=== PATIENT | male | born 2000 | race Caucasian/White ===

== ENCOUNTER 2022-09-03 12:37 | Emergency (ER) | payer BC, SELFPAY ==
--- NOTE | ~2022-09-03 | XR_ITS ---
EXAMINATION: XR forearm LT 2V INDICATION: Left forearm pain TECHNIQUE: Two views of the left forearm are obtained. COMPARISON: None available FINDINGS: No fracture, dislocation, or subluxation. The bones, soft tissues, and joint spaces are nor mal. IMPRESSION: 1. No acute osseous abnormality. Reviewed, dictated and finalized at location B.
--- NOTE | ~2022-09-03 | XR_ITS ---
EXAMINATION: XR knee RT min 4V DATE: 09/03/2022 13:49 INDICATION: Right knee pain TECHNIQUE: Four views of the right knee were obtained. COMPARISON: None. FINDINGS: Alignment is normal. No fracture or osteochondral lesion. Joint spaces are normal with no e rosions. A small knee joint effusion is present. There is anterior soft tissue swelling knee. IMPRESSION: 1. Soft tissue swelling and small knee joint effusion without acute osseous abnormality. Reviewed, dictated and finalized at location B. IMPRESSION: 1. Soft tissue swelling and small knee joint effusion without acute osseous abn ormality.
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
[2022-09-03 12:44] VITALS: BP 144/80; PULSE 69; RESP 16; TEMP 36.9; O2SAT 100
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
[2022-09-03] MEDS: ACETAMINOPHEN 500 MG TABLET 1000 MG PO (15:13)
[2022-09-03 17:35] VITALS: BP 148/76; PULSE 90; RESP 18; O2SAT 97
== END 2022-09-03 17:05 | disposition home or self-care (01) ==
PROVIDERS: Emergency Provider Emergency Medicine
DX: S22.030A Wedge compression fracture of third thoracic vertebra, initial encounter for closed fracture (principal); S22.040A Wedge compression fracture of fourth thoracic vertebra, initial encounter for closed fracture; S20.311A Abrasion of right front wall of thorax, initial encounter; S60.812A Abrasion of left wrist, initial encounter; S80.211A Abrasion, right knee, initial encounter; V86.56XA Driver of dirt bike or motor/cross bike injured in nontraffic accident, initial encounter
CPT/HCPCS: 70450; 71260; 72125; 72128; 72131; 73090; 73564; 74177; 99284; A9270; Q9967

== ENCOUNTER → 2022-09-12 12:43 | Outpatient (CLI) | payer BC, SELFPAY ==
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
== END ==
PROVIDERS: PCP Emergency Medicine; Visit Provider Emergency Medicine
DX: R07.81 Pleurodynia (principal)
CPT/HCPCS: 71046; 73000

== ENCOUNTER 2022-09-18 08:50 | Outpatient (CLI) | payer BC, SELFPAY ==
[2022-09-18 19:16] LABS: Basophils Absolute Auto 0.1 K/mm3 (0.0-0.1); Basophils Percent Auto 1.9 % (0.2-1.2); Eosinophils Absolute Auto 0.2 K/mm3 (0-0.3); Hematocrit 47.7 % (42.0-52.0); Immature Granulocyte Absolute 0.02 K/mm3 (0.00-0.031); Immature Granulocyte Percent A 0.4 % (0-0.5); Lymphocytes Absolute Auto 1.26 K/mm3 (0.9-3.2); Lymphocytes Percent Auto 26.3 % (18.3-44.2); Mean Corpuscular HGB Conc 33.5 g/dl (32-36); Mean Corpuscular Hemoglobin 30.3 pg (26-34); Mean Corpuscular Volume 90.3 fl (80-100); Mean Platelet Volume 10.2 fl (7.4-10.4); Monocytes Absolute Auto 0.5 K/mm3 (0.1-0.6); Monocytes Percent Auto 10.4 % (2.6-8.5); Neutrophils Absolute Auto 2.7 K/mm3 (1.3-6.7); Platelet Count Result 241 k/mm3 (150-375); Red Blood Count 5.28 M/mm3 (4.6-6.20); Red Cell Distribution Width 12.9 % (11.5-14.5); White Blood Count 4.8 K/mm3 (4.5-10.0)
[2022-09-19 00:36] LABS: Alanine Aminotransferase 50 U/L (6-50); Albumin Level 4.9 g/dL (3.5-5.1); Alkaline Phosphatase 113 U/L (38-126); Anion Gap 10 mmol/L (8-16); Aspartate Amino Transferase 55 U/L (17-59); Bilirubin,Total 0.7 mg/dL (0.2-1.3); Blood Urea Nitrogen 19 mg/dL (9-20); Calcium 10.1 mg/dL (8.4-10.2); Carbon Dioxide 29 mmol/L (22-30); Chloride 103 mmol/L (98-107); Cholesterol 157 mg/dL (0-200); Estimated Glomerular Filt Rate > 60; Glucose 79 mg/dL (65-110); HDL Direct 38 mg/dL; Potassium 4.4 mmol/L (3.4-5.0); Sodium 142 mmol/L (137-145); Triglycerides 95 mg/dL (<150)
[2022-09-19 00:47] LABS: LDL Cholesterol Direct 71 mg/dL
[2022-09-25 04:53] LABS: Apolipoprotein B 70 mg/dL (<90)
== END 2022-09-18 08:51 | disposition home or self-care (01) ==
LOC: ANHGOSHLAB 08:52
PROVIDERS: Visit Provider Internal Medicine
DX: Z13.29 Encounter for screening for other suspected endocrine disorder (principal); Z13.0 Encounter for screening for diseases of the blood and blood-forming organs and certain disorders involving the immune mechanism; Z13.228 Encounter for screening for other metabolic disorders; Z82.3 Family history of stroke
CPT/HCPCS: 36415; 80053; 80061; 82172; 83036; 85025

== ENCOUNTER 2022-11-14 12:35 | Outpatient (CLI) | payer BC, SELFPAY ==
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
== END 2022-11-14 12:36 | disposition home or self-care (01) ==
PROVIDERS: PCP Internal Medicine; Visit Provider Neurological Surgery
DX: S22.030D Wedge compression fracture of third thoracic vertebra, subsequent encounter for fracture with routine healing (principal); S22.040D Wedge compression fracture of fourth thoracic vertebra, subsequent encounter for fracture with routine healing; S22.060D Wedge compression fracture of T7-T8 vertebra, subsequent encounter for fracture with routine healing; S22.050D Wedge compression fracture of T5-T6 vertebra, subsequent encounter for fracture with routine healing; X58.XXXD Exposure to other specified factors, subsequent encounter
CPT/HCPCS: 72070

== ENCOUNTER 2023-08-10 12:47 | Emergency (ER) | payer OTHER, SELFPAY ==
--- NOTE | 2023-08-10 13:02 | ED.EAR ---
HPI - Ear Problem General Chief complaint: Ear Stated complaint: rt ear inf Time Seen by Provider: 08/10/23 13:05 Source: patient Mode of arrival: ambulatory Limitations: no limitations History of Present Illness HPI Narrative: 22-year-old male presented for complaint of right ear pain worsening over the past 3 days. Endorses drainage from the ear. He has not been swimming. Endorses wearing ear buds. Denies tinnitus, dizziness, nausea vomiting, fevers or chills. MD Complaint: ear pain Related Data Allergies Allergy/AdvReac Type Severity Reaction Status Date / Time No Known Allergies Allergy Verified 08/10/23 13:06 Review of Systems Review of Systems: CONSTITUTIONAL: Denies malaise, chills, or fever. EYES: Denies visual changes, redness, or discharge. ENT: Denies rhinorrhea, congestion, sinus pain, and sore throat. Reports ear pain CARDIOVASCULAR: Denies chest pain, palpitations, or edema. RESPIRATORY: Denies cough or dyspnea. GASTROINTESTINAL: Denies abdominal pain, nausea, vomiting, diarrhea SKIN: Denies rash or itching. MUSCULOSKELETAL: Denies myalgia. NEUROLOGIC: Denies headache. All systems reviewed & are unremarkable except as noted in HPI and below PMFSH Past Medical History Medical History Family history of stroke or transient ischemic attack in father Family History Family History Father Cerebrovascular accident Mother Breast cancer Social History Social History Smoking status: Never smoker Second hand tobacco smoke exposure: Yes Alcohol intake: current Alcohol use details: occasionally Substance use: never Lack of Transportation: No Lack of Food: Never True Current Housing: I Have Housing Concerned About Future Housing: No Difficulty Paying Gas/Electric Bills: No Difficulty Paying for Meds: No Currently Unemployed: No Education: High School Diploma/GED Difficulty w/ Childcare or Family Care: No Living arrangements: with family Occupation/Education: occupation Additional occupation/education comments: [employer] Gender identity (if verbalized by the patient): Male Agree to blood products: Yes Comments At time of signature, agree with nursing past medical, surgical, social and family history. There is no relevant family history pertinent to the presenting complaint Exam Narrative: GENERAL: Well-appearing EYES: PERRLA, conjunctivae clear ENT: Nares clear. Mucous membranes moist. Left TM pearly gaston with dull light reflex; Right TM unable to visualize, canal with purulent drainage no tragal tenderness. NECK: Supple. No lymphadenopathy CHEST: Clear to auscultation, breath sounds equal. HEART: Regular rate and rhythm. No murmur heard. SKIN: Warm, dry, no rash. NEURO: Alert and oriented x3. PSYCH: Normal mood and affect Course Course Emergency Course: Patient is aware of diagnosis, understands and agrees to treatment plan. Anticipatory guidance given. Patient agrees to follow-up as directed and is aware of reasons to seek care at the emergency department. Portions of this record may have been created with voice recognition software Level of Care: Express Care Visit Vital Signs Vital signs: Reviewed Medical Decision Making MDM Narrative Medical decision making narrative: Discussed physical exam findings consistent with otitis externa; reviewed RX. Advised supportive measures and signs/symptoms to go to the ER. Patient is appropriate for outpatient treatment and follow-up. Differential Diagnosis Differential Diagnosis: Coronavirus, strep pharyngitis, allergic rhinitis, upper respiratory tract infection, sinusitis, rhinosinusitis, nasopharyngitis, viral pharyngitis, otitis media, otitis externa, eustachian tube dysfunction, foreign body, cerumen impaction. Discharge
[2023-08-10 13:08] VITALS: BP 148/97; PULSE 87; RESP 16; TEMP 36.9; O2SAT 100
== END 2023-08-10 13:15 | disposition home or self-care (01) ==
PROVIDERS: Emergency Provider Nurse Practitioner Family; PCP Internal Medicine
DX: H60.91 Unspecified otitis externa, right ear (principal)
CPT/HCPCS: 99213; G0463

== ENCOUNTER 2024-11-23 11:02 | Emergency (ER) | payer BC, SELFPAY ==
[2024-11-23 11:06] VITALS: BP 150/90; PULSE 93; RESP 16; TEMP 36.6; O2SAT 100
--- NOTE | 2024-11-23 11:18 | ED.URI ---
HPI - URI/Sore Throat General Chief Complaint: Upper Respiratory Infection Stated Complaint: Not feeling well Source: patient and RN notes reviewed Mode of arrival: ambulatory Limitations: no limitations History of Present Illness HPI Narrative: Patient is a 24-year-old male who presents to the [facility] with complaints of right ear pain, congestion, and cough. He states that he has had his symptoms for the past week. His ear pain continues to worsen. He has noted some ear drainage. Patient also endorses a frequent nonproductive cough. Reports nasal congestion and drainage. Denies known fevers. Denies chest pain or shortness of breath. Related Data Allergies Allergy/AdvReac Type Severity Reaction Status Date / Time No Known Allergies Allergy Verified 11/23/24 11:06 Review of Systems Review of Systems: CONSTITUTIONAL: Denies fever, chills, or sweats. EYES: Denies visual changes, redness, or discharge. ENT: Reports otalgia but denies sore throat CARDIOVASCULAR: Denies chest pain, palpitations, or edema. RESPIRATORY: Reports cough but denies dyspnea. GASTROINTESTINAL: Denies abdominal pain, nausea, vomiting, or diarrhea. GENITOURINARY: Denies dysuria or hematuria. SKIN: Denies rash or itching. MUSCULOSKELETAL: Denies back pain, joint pain, or myalgia. NEUROLOGIC: Denies headache, numbness, or weakness. Pertinent positives per HPI. [facility] Past Medical History Medical History Family history of stroke or transient ischemic attack in father Family History Family History Father Cerebrovascular accident Mother Breast cancer Social History Social History Smoking status: Never smoker Second hand tobacco smoke exposure: Yes Alcohol intake: current Alcohol use details: occasionally Substance use: never Lack of Transportation: No Lack of Food: Never True Current Housing: I Have Housing Concerned About Future Housing: No Difficulty Paying Gas/Electric Bills: No Difficulty Paying for Meds: No Currently Unemployed: No Education: High School Diploma/GED Difficulty w/ Childcare or Family Care: No Living arrangements: with family Occupation/Education: occupation Additional occupation/education comments: [employer] Work[employer] Gender identity (if verbalized by the patient): Male Agree to blood products: Yes Comments At the time of my signature, I reviewed and agree with the nursing past medical, surgical, social, and family history. There is no relevant family history pertinent to the patient complaint. Exam Narrative: GENERAL: This is a well-nourished, well-developed patient, in no apparent distress. HEAD: normocephalic, atraumatic. EYES: Sclera clear/white. Vision is grossly intact. EARS: External ears normal. Right auditory canal with drainage and edematous; left normal. Left TM normal; right erythematous. Hearing grossly intact. NOSE: External nose normal with no obvious nasal discharge, nares without redness, no rhinorrhea. THROAT: Mucous membranes moist, posterior pharynx clear. NECK: Neck supple, non-tender without lymphadenopathy, masses or thyromegaly. CARDIOVASCULAR: Regular rate and rhythm without murmurs, gallops, or rubs. RESPIRATORY: Clear to auscultation. Breath sounds equal bilaterally. No wheezes, rales, or rhonchi. GASTROINTESTINAL: Abdomen soft, non-tender, nondistended. Bowel sounds are active. No hepato-splenomegaly, or palpable masses. No guarding. SKIN: warm, intact with no suspicious lesions or rash, good texture and turgor. NEURO: awake, alert, and oriented to person, place and time. There were no obvious focal neurologic abnormalities. Course Course Level of Care: Express Care Visit Vital Signs Vital signs: Vital Signs Temperature 97.8 F 11/23/24 11:06 Pulse Rate 93 11/23/24 11:06 Respiratory Rate 16 11/23/24 11:06 Blood Pressure 150/90 H 11/23/24 11:06 Pulse Oximetry 100 11/23/24 11:06 Oxygen Delivery Room Air 11/23/24 11:06 Temperature 97.8 F 11/23/24 11:06 Pulse Rate 93 11/23/24 11:06 Respiratory Rate 16 11/23/24 11:06 Blood Pressure 150/90 H 11/23/24 11:06 Pulse Oximetry 100 11/23/24 11:06 Oxygen Delivery Room Air 11/23/24 11:06 Reviewed MDM - URI/Sore Throat MDM Narrative Medical decision making narrative: Take antibiotics as directed. May given ibuprofen and/or Tylenol as needed for pain and/or fever. Follow up with primary care provider in 7-10 days to have ear rechecked. -Ear drops as directed for 7-10 days until the pain and swelling are gone. -When administer drug into the affected ear; make sure to ly down with the affected ear facing upward, message the ear canal to help the drops reach the medial end of the canal, then remain in that position for at least 5 mintues. -Avoid using cotton tipped applicator for ears cleaning -Avoid exposing swimming or exposing the affected ear to water during the treatment period Take or alternate tylenol or ibuprofen every 4 - 6 hours if needed for pain. Follow up with primary care provider if condition is not improving in 7 days or sooner if there is new concern. May use the inhaler every 4-6 hours as needed for coughing. Increase fluids at home. Avoid any and all smoke. May use a humidifier in the bedroom. Increase your Vitamin C. Follow-up with personal physician in 2-5 days. Differential Diagnosis Differential diagnosis: Likely upper respiratory infection, otitis media, sinusitis, viral infection and bronchitis Critical Care Time Critical Care Time Critical Care Time: No Discharge Plan Discharge Clinical Impression: Acute right otitis media, Upper respiratory infection, viral Acute otitis externa of right ear Qualifiers: Otitis externa type: unspecified type Qualified Code(s): H60.501 - Unspecified acute noninfective otitis externa, right ear Patient Disposition: Home Condition: Stable Instructions: Antibiotic Form, Ear Infection (ED), Acute Bronchitis (ED) Additional Instructions: Take antibiotics as directed. May given ibuprofen and/or Tylenol as needed for pain and/or fever. Follow up with primary care provider in 7-10 days to have ear rechecked. -Ear drops as directed for 7-10 days until the pain and swelling are gone. -When administer drug into the affected ear; make sure to ly down with the affected ear facing upward, message the ear canal to help the drops reach the medial end of the canal, then remain in that position for at least 5 mintues. -Avoid using cotton tipped applicator for ears cleaning -Avoid exposing swimming or exposing the affected ear to water during the treatment period Take or alternate tylenol or ibuprofen every 4 - 6 hours if needed for pain. Follow up with primary care provider if condition is not improving in 7 days or sooner if there is new concern. May use the inhaler every 4-6 hours as needed for coughing. Increase fluids at home. Avoid any and all smoke. May use a humidifier in the bedroom. Increase your Vitamin C. Follow-up with personal physician in 2-5 days. Patient Language: Bur[place]ian Prescriptions: New amoxicillin-pot clavulanate 875-125 mg tablet 1 tablet PO Q12H 10 Days Qty: 20 0RF albuterol sulfate [Ventolin HFA] 90 mcg/actuation HFA aerosol inhaler 1 inh inhalation QID Qty: 6.7 0RF ofloxacin 0.3 % drops 10 drp RIGHT EAR DAILY 7 Days Qty: 10 0RF fluticasone propionate [Flonase Allergy Relief] 50 mcg/actuation spray,suspension 1 spray intranasal BID Qty: 16 0RF Rx Instructions: administer into each nostril Follow-up/Referrals: Edy Baker MD [Physician, Ear, Nose, Throat] PHYSICIAN,STEWARD RACETRACK [Primary Care Provider, Internal Medicine] Time of Disposition: 11:28
== END 2024-11-23 11:33 | disposition home or self-care (01) ==
PROVIDERS: Emergency Provider Nurse Practitioner
DX: H66.91 Otitis media, unspecified, right ear (principal); J06.9 Acute upper respiratory infection, unspecified; H60.501 Unspecified acute noninfective otitis externa, right ear
CPT/HCPCS: 99213; G0463